=== PATIENT | male | born 1940 | race Caucasian/White ===

== ENCOUNTER 2017-08-15 08:17 | Outpatient (CLI) | payer OTHER ==
[~2017-08-15] VITALS: Ht 182.9 cm; Wt 99.8 kg
== END 2017-08-15 08:45 | disposition home or self-care (01) ==
LOC: OFIC 805 08:17
DX: H93.12 Tinnitus, left ear (principal); H60.8X2 Other otitis externa, left ear

== ENCOUNTER 2017-09-27 08:23 | Outpatient (CLI) | payer OTHER ==
[~2017-09-27] VITALS: Ht 182.9 cm; Wt 99.8 kg
== END 2017-09-27 08:45 | disposition home or self-care (01) ==
LOC: OFIC 805 08:23
DX: H93.12 Tinnitus, left ear (principal); H90.3 Sensorineural hearing loss, bilateral

== ENCOUNTER 2020-08-07 07:48 | Outpatient (CLI) | payer OTHER | END 2020-08-07 07:53 | disposition home or self-care (01) | LOC: LAB 07:48 | PROVIDERS: ATTEND Internal Medicine | DX: I10 Essential (primary) hypertension (principal); M54.5 Low back pain; E78.9 Disorder of lipoprotein metabolism, unspecified; N41.1 Chronic prostatitis; N41.9 Inflammatory disease of prostate, unspecified; C61 Malignant neoplasm of prostate ==

== ENCOUNTER 2020-08-27 13:25 | Outpatient (CLI) | payer OTHER | END 2020-08-27 13:26 | disposition home or self-care (01) | LOC: NUCLEAR 13:25 | PROVIDERS: ATTEND Internal Medicine | DX: M81.0 Age-related osteoporosis without current pathological fracture (principal) ==

== ENCOUNTER 2020-11-19 07:39 | Outpatient (CLI) | payer OTHER | END 2020-11-19 07:45 | disposition home or self-care (01) | LOC: TOM 07:39 | PROVIDERS: ATTEND Internal Medicine Hematology & Oncology | DX: K57.90 Diverticulosis of intestine, part unspecified, without perforation or abscess without bleeding (principal); C61 Malignant neoplasm of prostate; N28.89 Other specified disorders of kidney and ureter | CPT/HCPCS: 74177; Q9965 ==

== ENCOUNTER 2020-12-11 07:14 | Outpatient (CLI) | payer OTHER | END 2020-12-11 07:19 | disposition home or self-care (01) | LOC: NUCLEAR 07:14 | PROVIDERS: ATTEND Internal Medicine Hematology & Oncology | DX: C61 Malignant neoplasm of prostate (principal); C79.51 Secondary malignant neoplasm of bone | CPT/HCPCS: 78306; A9503 ==

== ENCOUNTER → 2021-01-07 08:00 | Outpatient (CLI) | payer OTHER | END | disposition home or self-care (01) | LOC: PPH VACUNA 08:00 | PROVIDERS: ATTEND Emergency Medicine Pediatric Emergency Medicine | DX: Z23 Encounter for immunization (principal) ==

== ENCOUNTER 2022-05-11 09:28 | Outpatient (CLI) | payer OTHER | END 2022-05-11 09:34 | disposition home or self-care (01) | LOC: LAB 09:28 | PROVIDERS: ATTEND Radiology Diagnostic Radiology | DX: C61 Malignant neoplasm of prostate (principal) ==

== ENCOUNTER 2022-05-19 07:08 | Outpatient (CLI) | payer OTHER | END 2022-05-19 07:09 | disposition home or self-care (01) | LOC: NUCLEAR 07:08 | PROVIDERS: ATTEND Internal Medicine Hematology & Oncology | DX: C61 Malignant neoplasm of prostate (principal); C79.51 Secondary malignant neoplasm of bone | CPT/HCPCS: 78306; A9503 ==

== ENCOUNTER 2022-05-20 07:15 | Outpatient (CLI) | payer OTHER | END 2022-05-20 07:25 | disposition home or self-care (01) | LOC: TOM 07:15 | PROVIDERS: ATTEND Internal Medicine Hematology & Oncology | DX: C61 Malignant neoplasm of prostate (principal); K76.0 Fatty (change of) liver, not elsewhere classified; K57.92 Diverticulitis of intestine, part unspecified, without perforation or abscess without bleeding; N28.1 Cyst of kidney, acquired | CPT/HCPCS: 74177; Q9965 ==